=== PATIENT | female | born 1955 | race Caucasian/White ===

== ENCOUNTER → 2020-12-14 09:07 | Outpatient (CLI) | payer MEDICARE, MEDICAID, SELFPAY ==
[2020-12-14 11:04] LABS: Coronavirus 19 IgG Antibody Negative (Negative); Coronavirus 19 IgM Antibody Negative (Negative)
== END ==
PROVIDERS: Visit Provider Ophthalmology
DX: Z01.812 Encounter for preprocedural laboratory examination (principal)
CPT/HCPCS: 36415; 86328

== ENCOUNTER 2020-12-15 06:44 | Day surgery (SDC) | payer MEDICARE, MEDICAID, SELFPAY ==
[2020-12-08 13:08] VITALS: BMI 30.2
[2020-12-15] VITALS (7 sets, daily range): BP systolic 149–174; BP diastolic 81–106; PULSE 81–90; RESP 16–18; TEMP 36.2–36.6; O2SAT 94–100
== END 2020-12-15 09:20 | disposition home or self-care (01) ==
LOC: OR 06:48
PROVIDERS: PCP Pediatrics; Visit Provider Ophthalmology
DX: H25.813 Combined forms of age-related cataract, bilateral (principal); H53.149 Visual discomfort, unspecified; H02.834 Dermatochalasis of left upper eyelid; H02.831 Dermatochalasis of right upper eyelid; J45.909 Unspecified asthma, uncomplicated; Z83.3 Family history of diabetes mellitus; Z87.19 Personal history of other diseases of the digestive system; Z88.6 Allergy status to analgesic agent; Z88.5 Allergy status to narcotic agent; Z79.899 Other long term (current) drug therapy
CPT/HCPCS: 66984; V2632

== ENCOUNTER → 2020-12-28 12:37 | Outpatient (CLI) | payer MEDICARE, MEDICAID, SELFPAY ==
[2020-12-28 14:57] LABS: Coronavirus 19 IgG Antibody Negative (Negative); Coronavirus 19 IgM Antibody Negative (Negative)
== END ==
PROVIDERS: Visit Provider Ophthalmology
DX: Z01.818 Encounter for other preprocedural examination (principal); Z20.822 Contact with and (suspected) exposure to COVID-19; H25.11 Age-related nuclear cataract, right eye
CPT/HCPCS: 36415; 86328

== ENCOUNTER 2020-12-29 06:41 | Day surgery (SDC) | payer MEDICARE, MEDICAID, SELFPAY ==
[2020-12-29] VITALS (11 sets, daily range): BP systolic 139–186; BP diastolic 76–115; PULSE 76–86; RESP 16–22; TEMP 36.4–36.9; O2SAT 98–100; BMI 30.2
== END 2020-12-29 09:34 | disposition home or self-care (01) ==
LOC: OR 06:43
PROVIDERS: PCP Pediatrics; Visit Provider Ophthalmology
DX: H25.813 Combined forms of age-related cataract, bilateral (principal); H26.111 Localized traumatic opacities, right eye; H53.149 Visual discomfort, unspecified; H02.834 Dermatochalasis of left upper eyelid; H02.831 Dermatochalasis of right upper eyelid; Z88.6 Allergy status to analgesic agent; Z88.5 Allergy status to narcotic agent; F41.9 Anxiety disorder, unspecified; Z83.3 Family history of diabetes mellitus; Z79.899 Other long term (current) drug therapy
CPT/HCPCS: 66982; V2632

== ENCOUNTER → 2021-11-27 10:16 | Outpatient (CLI) | payer MEDICARE, MEDICAID, SELFPAY | PROVIDERS: Visit Provider Ophthalmology | DX: Z01.812 Encounter for preprocedural laboratory examination (principal); Z11.52 Encounter for screening for COVID-19 | CPT/HCPCS: C9803; U0003; U0005 ==

== ENCOUNTER 2021-11-30 08:34 | Day surgery (SDC) | payer MEDICARE, MEDICAID, SELFPAY ==
[2021-11-24 11:38] VITALS: BMI 30.2
[2021-11-30 08:57] VITALS: BP 164/82; PULSE 78; RESP 18; TEMP 36.1; O2SAT 98
[2021-11-30 10:18] VITALS: BP 159/96; PULSE 78; RESP 18; TEMP 36.1; O2SAT 98
== END 2021-11-30 10:18 | disposition home or self-care (01) ==
LOC: OUTP 08:37
PROVIDERS: PCP Pediatrics; Visit Provider Ophthalmology
PROC: (CPT 66821; principal; 2021-11-30 09:30)
DX: H26.492 Other secondary cataract, left eye (principal); H27 Other disorders of lens; J45.909 Unspecified asthma, uncomplicated; I10 Essential (primary) hypertension; Z83.3 Family history of diabetes mellitus; Z88.5 Allergy status to narcotic agent; Z88.8 Allergy status to other drugs, medicaments and biological substances; Z79.899 Other long term (current) drug therapy
CPT/HCPCS: 66821

== ENCOUNTER → 2021-12-25 10:22 | Outpatient (CLI) | payer MEDICARE, MEDICAID, SELFPAY | PROVIDERS: PCP Pediatrics; Visit Provider Ophthalmology | DX: Z01.812 Encounter for preprocedural laboratory examination (principal); Z11.52 Encounter for screening for COVID-19 | CPT/HCPCS: C9803; U0003; U0005 ==

== ENCOUNTER 2021-12-28 09:21 | Day surgery (SDC) | payer MEDICARE, MEDICAID, SELFPAY ==
[2021-12-22 13:48] VITALS: BMI 29.8
[2021-12-28] VITALS (11 sets, daily range): BP systolic 146–200; BP diastolic 71–99; PULSE 67–89; RESP 16–18; TEMP 36.6–36.7; O2SAT 99–100
== END 2021-12-28 11:58 | disposition home or self-care (01) ==
LOC: OR 09:22
PROVIDERS: PCP Pediatrics; Visit Provider Ophthalmology
DX: Y77.2 Prosthetic and other implants, materials and accessory ophthalmic devices associated with adverse incidents; T85.22XA Displacement of intraocular lens, initial encounter; J45.909 Unspecified asthma, uncomplicated; Z88.5 Allergy status to narcotic agent; Z88.6 Allergy status to analgesic agent; Z88.8 Allergy status to other drugs, medicaments and biological substances; T85.848A Pain due to other internal prosthetic devices, implants and grafts, initial encounter
CPT/HCPCS: 66825